=== PATIENT | male | born 1995 | race Caucasian/White ===

== ENCOUNTER 2017-11-08 16:34 | Emergency (ER) | payer BC ==
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
== END 2017-11-08 17:25 | disposition home or self-care (01) ==
LOC: SCSER 16:34
DX: S06.0X9A Concussion with loss of consciousness of unspecified duration, initial encounter (principal); S00.03XA Contusion of scalp, initial encounter; Y04.2XXA Assault by strike against or bumped into by another person, initial encounter
CPT/HCPCS: 70450